=== PATIENT | female | born 1985 | race Caucasian/White ===

== ENCOUNTER → 2019-08-08 16:19 | Outpatient (CLI) | payer OTHER, MEDICAID, SELFPAY | PROVIDERS: Referring Provider Family Medicine; Visit Provider Family Medicine | DX: Z34.91 Encounter for supervision of normal pregnancy, unspecified, first trimester (principal); Z53.9 Procedure and treatment not carried out, unspecified reason ==

== ENCOUNTER → 2019-08-22 10:39 | Outpatient (CLI) | payer OTHER, MEDICAID, SELFPAY ==
--- NOTE | 2019-08-22 | DI.US.S_ITS ---
PROCEDURE: US OB <= 14 WEEKS FETUS INDICATIONS: SIZE AND DATES OUTSIDE/PRIOR DATING DATA: Last menstrual period (LMP): 07/07/2019. LMP-based estimated date of delivery (JUAREZ): . First dating scan (date and location): 08/22/2019. Estimated date of delivery (JUAREZ) from first dating scan: 04/11/2020. TECHNIQUE: Real-time scanning was performed of the fetus and maternal pelvic organs, with image documentation. Endovaginal scanning was also performed to better visualize the fetus and maternal ovaries. COMPARISON: None. FINDINGS: Embryo: There is a single living intrauterine gestation. heart tone is present with heart rate 123 BPM. The estimated gestation age is 6 weeks 5 days. Measurement variability in dating: +/- 4 weeks by LMP, +/- 7 days by mean sac diameter (use before 6 weeks gestation if crown-rump length not able to be measured), +/- 5 days by crown-rump length (up to 8 weeks 6 days gestation), +/- 7 days by crown-rump length (up to 13 weeks 6 days gestation). Maternal organs: Ovaries are normal. There is a corpus luteal cyst in right ovary. Limited images through the kidneys demonstrate no hydronephrosis. IMPRESSION: 1. A single living intrauterine gestation with an estimated gestational age of 6 weeks 5 days corresponding to ultrasound JUAREZ 04/11/2020. Dictated by: Tree Schofield M.D. on 08/22/2019 at 15:39 Approved by: Tree Schofield M.D. on 08/22/2019 at 15:42
== END ==
PROVIDERS: Referring Provider Family Medicine; Visit Provider Family Medicine
DX: Z36.87 Encounter for antenatal screening for uncertain dates (principal); Z3A.01 Less than 8 weeks gestation of pregnancy
CPT/HCPCS: 76801; 76817

== ENCOUNTER → 2020-03-19 15:53 | Outpatient (ROUT) | payer OTHER, MEDICAID, SELFPAY | PROVIDERS: Visit Provider Family Medicine | DX: Z33.1 Pregnant state, incidental (principal) | CPT/HCPCS: 87081 ==

== ENCOUNTER → 2020-04-02 09:12 | Outpatient (CLI) | payer OTHER, MEDICAID, SELFPAY ==
--- NOTE | 2020-04-02 | DI.US.S_ITS ---
PROCEDURE: US OB LIMITED INDICATIONS: SIZE SMALLER THAN DATES OUTSIDE/PRIOR DATING DATA: Last menstrual period (LMP): 07/07/2019. LMP-based estimated date of delivery (JUAREZ): 04/12/2020 . First dating scan (date and location): 08/22/2019 . Estimated date of delivery (JUAREZ) from first dating scan: 04/11/2020 . TECHNIQUE: Real-time scanning was performed of the fetus, with image documentation and biometric measurements. Endovaginal scanning: No COMPARISON: [facility], OB <= 14 WEEKS FETUS, 08/22/2019, 11:07. FINDINGS: General: A single living intrauterine gestation is present. Presentation: Vertex Placenta: Placental position is posterior fundal , without previa. Amniotic fluid index: 8.9 cm, normal range is 5-24 cm. heart rate: 130 beats per minute. Maternal cervical canal: Not well seen. biometrics: Biparietal diameter: 34 weeks 1 day Head circumference: 35 weeks 2 days Abdominal circumference: 37 weeks 4 days Femur length: 37 weeks 3 days Estimated gestational age from initial scan: 38 weeks 5 days Composite gestational age from present scan: 36 weeks 1 day Estimated weight and percentile: 304 g, 22 percentile Measurement variability for biometric dating: +/- 7 days from 14 weeks to 15 weeks 6 days gestation, +/- 10 days from 16 weeks to 21 weeks 6 days gestation, +/- 2 weeks from 22 weeks to 27 weeks 6 days gestation, +/- 3 weeks for 28 weeks gestation or later. weight reference: 4500 g or EFW >90/95% is considered macrosomia or large for gestational age. EFW <10% is small for gestational age. EFW 5% or less is considered intra-uterine growth restriction. Other: Not applicable. IMPRESSION: Single living IUP redemonstrated and interval growth is within normal limits. Dictated by: Ben [facility] Interpreted: Anna Montanez MD on 04/02/2020 at 12:43 Approved by: Anna Montanez M.D. on 04/02/2020 at 14:59
== END ==
PROVIDERS: PCP Family Medicine; Referring Provider Family Medicine; Visit Provider Family Medicine
DX: Z36.4 Encounter for antenatal screening for fetal growth retardation (principal); Z3A.36 36 weeks gestation of pregnancy
CPT/HCPCS: 76815

== ENCOUNTER → 2020-04-04 09:38 | Outpatient (CLI) | payer OTHER, MEDICAID, SELFPAY ==
[2020-04-04 12:06] LABS: COVID19 -Nasal RAPID Negative (Negative)
== END ==
PROVIDERS: PCP Family Medicine; Visit Provider Physician Assistant
DX: Z20.828 Contact with and (suspected) exposure to other viral communicable diseases (principal)
CPT/HCPCS: 87635

== ENCOUNTER 2020-04-10 08:26 | Inpatient (IN) | payer OTHER, MEDICAID, SELFPAY ==
[2020-04-10 09:04] LABS: COVID19 -Nasal RAPID Negative (Negative)
[2020-04-10] MEDS: OXYTOCIN PREMIX 30 UNIT/500 ML PLAST..BAG IV (09:49)
[2020-04-10] MEDS: LACTATED RINGERS 1,000 ML 100 ML IV ×2 (09:49→12:38)
--- NOTE | 2020-04-10 09:49 | PM.OBHP.1 ---
OB HPI Date/Time Date of admission: 04/10/20 Date Patient Seen: 04/10/20 Time Patient Seen: 09:49 History of Present Condition Chief complaint: induction Para: 1 Estimated Date of Delivery: 04/12/20 Estimated Gestational Age (weeks): 39 5/7 Narrative: Lois Roach is a 34 year old female Comments: Patient is a EDC 1224 with good dates early ultrasound who presents for induction by request. Cervix is considered ripe and by patient's request she was brought in for induction Indications Indication for induction OB: maternal discomfort History of Present care: good care Dating criteria: LMP confirmed by 1st trimester US Ultrasounds: normal mid trimester US Obstetrical complications: none Narrative: Patient transferred care to 36 weeks. No major issues. She had transferred originally early in the and then returned. Had been followed but had been followed by [facility] [place] no complications during that time. Ultrasound was normal Preadmission Labs Blood type: A (+) positive -: Antibody screen: negative, Cystic fibrosis screen: unknown, GBS status: negative, HBsAG: negative, HIV: negative, HSV 1: negative, HSV 2: negative and RPR/VDLR: negative -: Chlamydia screen: not detected and Gonorrhea screen: not detected -: Rubella: equivocal and Varicella: immune HCAB: negative PAP: Normal Prior (ies) History: Forty week intrauterine no complications Evaluation Evaluation Laboratory results: Laboratory Tests 04/10/20 08:45 COVID-19 PCR Negative Exam Vital Signs (past 8 hours): Alert smiling gravid female in no acute distress. Lungs are clear. Heart regular rate and rhythm. Evidence gravid. Estimated weight 7 lb. Sterile vaginal exam 3 cm is 60% -1 vertex AROM with clear fluid. Code without sinus clubbing edema. Neurologic exam is normal. Objective Labs Labs: Laboratory Results - last 24 hr 04/10/20 08:45 COVID-19 PCR Negative Assessment and Plan Assessment and Plan Assessment and Plan narrative: Thirty-nine and 5 7th week intrauterine here for induction. AROM now Pitocin started prepare for vaginal delivery heart monitors category 1
[2020-04-10 09:51] LABS: Add Manual Diff / Slide Review NO; Basophils Absolute Auto 0 /uL (0-100); Basophils Percent Auto 0.4 % (0-2); Eosinophils Absolute Auto 200 /uL (0-450); Hematocrit 35.8 % (36-46); Hemoglobin 12.1 g/dL (12.0-16.0); Lymphocytes Absolute Auto 1700 /uL (1100-4500); Lymphocytes Percent Auto 16.9 % (25-40); Mean Corpuscular HGB Conc 33.7 % (30-36); Mean Corpuscular Hemoglobin 28.6 PG (26-34); Mean Corpuscular Volume 84.8 fL (80-100); Monocytes Absolute Auto 600 /uL (0-900); Neutrophils Absolute Auto 7700 /uL (1500-7000); Neutrophils Percent Auto 74.7 % (50-75); Platelet Count 217 X10^3/uL (150-400); Red Blood Cell Count 4.22 X10^6/uL (4.0-5.2); Red Cell Distribution Width 14.3 % (11.6-14.8); White Blood Cell Count 10.3 X10^3/uL (4.5-11.0)
[2020-04-10 11:12] VITALS: BP 118/70
[2020-04-10] MEDS: FENT 2MCG/ML BUPIV 0.125% EPI 200 MCG/100 ML PLAST..BAG 10 MCG EPIDURAL (12:15)
--- NOTE | 2020-04-10 13:17 | PM.OBPNLAB ---
Date/Time Date Patient Seen: 04/10/20 Time Patient Seen: 13:17 Pain Control Pain control: epidural Pelvic Exam Dilation (cm): 4 Effacement (%): 70 station: -1 Amniotic membrane status: Ruptured Contractions Contractions on admission: irregular Monitor mode: None Pitocin rate (mU/min): 6 Contraction intensity: Moderate Status status: Category l Assessment and Plan Assessment: induction ongoing Comments: Discussed with patient. Overall doing well. More comfortable. Has a window which though be dealing with. Otherwise no major issues. heart monitor was reactive. Having difficulty picking contractions so IUPC was placed without complications. Seems to be working well. Will prepare for .
[2020-04-10 16:44] VITALS: BP 126/87; PULSE 84; RESP 16; TEMP 36.4
--- NOTE | 2020-04-10 17:59 | PM.OBPRVD ---
Labor & Delivery Delivery date: 04/10/20 Intrapartal events: None Cervical ripening method: none Induction method: AROM Delivery augmentation: pitocin Delivery monitor: external uterine and internal uterine Route of delivery: Episiotomy description: None L&D Laceration Description: None Estimated blood loss (mL): 200 Anesthesia Type: Epidural Narrative: Patient was brought in for induction this morning for request 39 and 5 7th week. She had no other significant complaint or problem. She had transfer to mt at 36 weeks after starting care early she had had no other significant new changes or complaints. Did not have genetic screening or 1 hour glucose test but otherwise was up-to-date on screening. was otherwise unremarkable. Recent ultrasound showed 7-1/2 lb with no complications or problems. Dating was with good dates with early ultrasound. She was brought in with and after assessing GBS status ruptured with clear fluid. Pitocin was begun. Shortly after Pitocin was begun and cervix at changed to about 4 cm she began having increasing pain and epidural was placed. heart monitor was category 1 throughout for stage. She continued to make slow progress without any complications over the course of the afternoon. Pain control was excellent. There was difficulty in monitoring contractions and IUP was placed without complications and worked well through the course of the is 1st and 2nd stage. She was checked and found to be almost complete and had no knowledge. Second-stage was 1 push and child was delivered OA over intact perineum. She was placed up onto the abdomen and Apgars were 9 and 9. No resuscitation required. Cord was clamped and cut by dad. Placenta delivered spontaneous intact 3 vessels. Evaluation of the vagina showed no tears no cervical tears. EBL 200 cc. Mother and infant stable condition.
[2020-04-10] MEDS: IBUPROFEN 600 MG TABLET PO (20:52)
[2020-04-10] MEDS: ACETAMINOPHEN 325 MG TABLET 650 MG PO (22:27)
[2020-04-11] MEDS: IBUPROFEN 600 MG TABLET PO ×2 (03:49→11:57)
[2020-04-11] MEDS: PRENATAL VIT,CALC/IRON/FOLIC 1 TABLET 1 TAB PO (08:09)
[2020-04-11] MEDS: ACETAMINOPHEN 325 MG TABLET 650 MG PO (08:37)
--- NOTE | 2020-04-11 10:00 | P.DS_ITS ---
History of Present Illness History of Present Illness Date Patient Seen: 04/11/20 Time Patient Seen: 10:00 Date of Onset of Symptoms: 04/11/20 Chief complaint: induction Narrative: Please see history and physical. 395 7th week intrauterine brought in for induction Discharge Providers Provider Date of admission: 04/10/20 08:26 Discharge Date: 04/11/20 Primary care physician: Bc Mcclain MD Consults: 04/11/20 17:56 Consult to [employer]per Routine Comment: Discharge provider: Bc Mcclain MD Summary Hospital Course Discharge Diagnosis: Term intrauterine . Hospital Course: Patient was brought in for induction please see delivery summary. She had a uncomplicated after induction with rupture of membranes and Pitocin. She was transferred to recovery without complications. She had no other significant new change. She had minimal lochia. On day 1. Breast- feeding was going well. Pain was well controlled with Tylenol and ibuprofen. She had no concerns or question was requesting to go home. She was discharged home in stable position Status at Discharge Cognitive/behavioral status at discharge: oriented Functional status at discharge: independent ambulation Overall status at discharge: patient is progressing back to baseline Exam Vital Signs (past 8 hours): Alert smiling female in no acute distress. HEENT exam is unremarkable mucous membranes moist. Neck supple without adenopathy. Lungs are clear. Heart regular rate and rhythm. Abdomen is soft positive bowel sounds uterus is at the umbilicus and minimally tender. Extremities without edema or calf tenderness Objective Labs Result Diagrams: 04/10/20 09:15 Labs: Laboratory Results - last 24 hr 04/10/20 09:15 Blood Type A Positive Antibody Screen Negative [facility] Social History Smoking Status: Never smoker Discharge Assessment & Plan Assessment and Plan Assessment: Discharge to home. She will be followed up with me in 6 weeks. Routine post de livery instructions discussed and concerning signs and symptoms. She understands. Questions answered comfortable with decision to go home Discharge Plan Discharge Plan Patient Disposition: Home Discharge orders & Medications Prescriptions: New ibuprofen 600 mg Tablet 600 mg PO Q6HR PRN (Reason: Pain, Mild (1-3)) Qty: 90 RF: 0 Continued prenat.vits,bradley,[id number]-[id number] Tablet 1 tab PO DAILY RF: 0 omeprazole magnesium [Prilosec OTC] 20 mg Tablet,Delayed Release (Dr/Ec) 20 mg PO DAILY RF: 0 Follow up/Referrals: Bc Mcclain MD [Primary Care Provider] - 6 Weeks Diet/Activity/Treatments Diet: Diet as Tolerated Activity: as tolerated Skin/Wound/Dressing Care Report to your healthcare provider any signs of infection, such as:: chills, fever, increased pain, unusual drainage and unusual redness Discharge Data Primary Care Provider: Bc Mcclain
== END 2020-04-11 15:17 | disposition home or self-care (01) | DRG 560 ==
PROVIDERS: Admitting Provider Family Medicine; PCP Family Medicine; Referring Provider Family Medicine; Visit Provider Family Medicine
DX: O80 Encounter for full-term uncomplicated delivery (principal); Z3A.39 39 weeks gestation of pregnancy; Z37.0 Single live birth; Z01.812 Encounter for preprocedural laboratory examination; Z20.828 Contact with and (suspected) exposure to other viral communicable diseases
CPT/HCPCS: 01967; 36415; 59050; 85025; 86850; 86900; 86901; 87635; G0379; J2590

== ENCOUNTER → 2021-05-15 16:30 | Outpatient (CLI) | payer OTHER, MEDICAID, SELFPAY | PROVIDERS: PCP Family Medicine; Visit Provider Physician Assistant | DX: R30.0 Dysuria (principal) | CPT/HCPCS: 81002; 87086 ==

== ENCOUNTER → 2021-05-16 11:08 | Outpatient (CLI) | payer OTHER, MEDICAID, SELFPAY ==
--- NOTE | 2021-05-16 11:12 | DI.US.S_ITS ---
PROCEDURE: US OB <= 14 WEEKS FETUS INDICATIONS: SPOTTING X 2 DAYS. INITIAL DATING. OUTSIDE/PRIOR DATING DATA: Last menstrual period (LMP): Uncertain. LMP-based estimated date of delivery (JUAREZ): Not applicable. First dating scan (date and location): Not applicable. Estimated date of delivery (JUAREZ) from first dating scan: Not applicable. TECHNIQUE: Real-time scanning was performed of the fetus and maternal pelvic organs, with image documentation. Endovaginal scanning was also performed to better visualize the fetus and maternal ovaries. COMPARISON: [facility], OB <= 14 WEEKS FETUS, 08/22/2019, 11:07. FINDINGS: Embryo: There is an intrauterine gestational sac seen, with a mean gestational sac diameter of 1.5 cm, which corresponds to an estimated gestational age of 6 weeks 2 days. On these images, there is a yolk sac seen. No pole can be seen. On the right, there is an apparent subchorionic hemorrhage that measures 3 x 3 x 5 mm. Maternal organs: Ovaries are within normal limits, with a likely corpus luteum seen on the left. IMPRESSION: An intrauterine gestational sac is seen, which contains a yolk sac, yet without a pole at this time. There is a likely small subchronic hemorrhage. Close clinical followup, with serial beta-hCG and serial ultrasound are recommended, if clinically appropriate. Likely left ovarian corpus luteum. We strive to produce accurate, complete, and clear reports of imaging services. To assist us in improving patient care, this report was composed using standard report templates and voice recognition software. Therefore, it may contain abnormal punctuation, insertions and/or omissions. Occasional wrong-word or sound-alike substitutions may occur. Though we review the report and make efforts to correct it, we do recommend that the report be read carefully in proper context to recognize any text inaccuracies. Dictated by: Yann Brennan M.D. on 05/16/2021 at 11:36 Approved by: Yann Brennan M.D. on 05/16/2021 at 11:38
== END ==
PROVIDERS: PCP Family Medicine; Referring Provider Family Medicine; Visit Provider Family Medicine
DX: O20.9 Hemorrhage in early pregnancy, unspecified (principal)
CPT/HCPCS: 76801; 76817

== ENCOUNTER 2021-05-17 17:49 | Emergency (ER) | payer OTHER, MEDICAID, SELFPAY ==
[2021-05-17] VITALS (18 sets, daily range): BP systolic 112–159; BP diastolic 67–92; PULSE 67–91; RESP 16; TEMP 36.7; O2SAT 96–99; BMI 28.0
--- NOTE | 2021-05-17 18:30 | DI.US.S_ITS ---
PROCEDURE: US OB <= 14 WEEKS FETUS INDICATIONS: HEAVY BLEEDING OUTSIDE/PRIOR DATING DATA: Last menstrual period (LMP): Not available. LMP-based estimated date of delivery (JUAREZ): Not available. First dating scan (date and location): 05/16/2021 at [facility]. Estimated date of delivery (JUAREZ) from first dating scan: 01/07/2022. The calculations are made using the ultrasound JUAREZ of 01/07/2022. TECHNIQUE: Real-time scanning was performed of the fetuses and maternal pelvic organs, with image documentation. Endovaginal scanning: Performed for better visualization of the fetuses and maternal adnexal structures. COMPARISON: [facility], US, US OB <= 14 WEEKS FETUS, 08/22/2019, 11:07. FINDINGS: There is irregular complex fluid within the endometrial cavity. No gestational sac is visible. Ovaries were not imaged. IMPRESSION: 1 No intrauterine gestational sac is identified. Irregular complex fluid within the endometrial cavity. The finding in this woman with heavy bleeding is most compatible with spontaneous . Recommend clinical correlation and follow-up imaging if clinically indicated. We strive to produce accurate, complete, and clear reports of imaging services. To assist us in improving patient care, this report was composed using standard report templates and voice recognition software. Therefore, it may contain abnormal punctuation, insertions and/or omissions. Occasional wrong-word or sound-alike substitutions may occur. Though we review the report and make efforts to correct it, we do recommend that the report be read carefully in proper context to recognize any text inaccuracies. Dictated by: Tree Schofield M.D. on 05/17/2021 at 19:49 Approved by: Tree Schofield M.D. on 05/17/2021 at 19:53
[2021-05-17 19:02] LABS: Add Manual Diff / Slide Review NO; Basophils Absolute Auto 200 /uL (0-100); Basophils Percent Auto 1.4 % (0-2); Eosinophils Absolute Auto 100 /uL (0-450); Eosinophils Percent Auto 0.7 % (2-4); Hematocrit 38.1 % (36-46); Hemoglobin 12.7 g/dL (12.0-16.0); Lymphocytes Absolute Auto 1200 /uL (1100-4500); Lymphocytes Percent Auto 9.3 % (25-40); Mean Corpuscular HGB Conc 33.4 % (30-36); Mean Corpuscular Hemoglobin 29.3 PG (26-34); Monocytes Absolute Auto 400 /uL (0-900); Monocytes Percent Auto 3.4 % (3-14); Neutrophils Absolute Auto 11300 /uL (1500-7000); Neutrophils Percent Auto 85.2 % (50-75); Platelet Count 230 X10^3/uL (150-400); Red Blood Cell Count 4.33 X10^6/uL (4.0-5.2); Red Cell Distribution Width 12.7 % (11.6-14.8); White Blood Cell Count 13.2 X10^3/uL (4.5-11.0)
[2021-05-17 19:17] LABS: Alanine Aminotransferase 36 IU/L (<35); Albumin 4.9 g/dL (3.5-5.0); Albumin Globulin Ratio 1.4 (1.0-2.8); Alkaline Phosphatase 53 U/L (38-126); Aspartate Aminotransferase 30 IU/L (14-36); BUN Creatinine Ratio 14.3 (6-22); Bilirubin Total 1.5 mg/dL (0.2-1.3); Blood Urea Nitrogen 8 mg/dL (7-17); Calcium 9.8 mg/dL (8.4-10.2); Carbon Dioxide 28 mmol/L (22-32); Chloride 102 mmol/L (98-107); Estimated Glomerular Filt Rate > 60.0 mL/min (>60); Globulin 3.6 g/dL (1.7-4.1); Glucose 109 mg/dL (70-100); HEMOLYSIS < 15 (0-50); Sodium 140 mmol/L (137-145); Total Protein 8.5 g/dL (6.3-8.2)
--- NOTE | 2021-05-17 19:33 | ED.PREGNANCY ---
HPI - General Chief complaint: Vaginal Bleeding Stated complaint: POSS. MISCARRIAGE Time Seen by Provider: 05/17/21 18:47 Source: patient Mode of arrival: Ambulatory Limitations: no limitations History of Present Illness HPI Narrative: Patient is a 35-year-old female G4 P to 1 prior presenting today with increased vaginal bleeding. She was seen evaluated by her primary care provider yesterday she had an ultrasound in the office there was concern for possible miscarriage at that time there was no heart rate detected. She went home today and started having increased bleeding in fact in the ED she had a lot of bleeding in the bathroom. She denies any dizziness or lightheadedness. She says that she has gone through 1 pad in 2 hours no large blood clots. She was having intense painful cramps. She actually has appointment with an OBGYN in 3 days Related Data Home Medications Medication Instructions Recorded Confirmed omeprazole magnesium 20 mg 20 mg PO DAILY 04/10/20 05/15/21 tablet,delayed release (Prilosec OTC) prenat.vits,bradley,jor-sixf-rqrif 1 tab PO DAILY 04/10/20 05/15/21 Previous Rx's Medication Instructions Recorded ibuprofen 600 mg tablet 600 mg PO Q6HR PRN #90 tab 04/11/20 cephalexin 500 mg capsule 1,000 mg PO BID 7 Days #28 cap 05/15/21 Allergies Allergy/AdvReac Type Severity Reaction Status Date / Time No Known Drug Allergies Allergy Verified 05/15/21 16:02 Review of Systems Review of Systems Narrative: GENERAL: Denies chills, fatigue, malaise, fever, sweats, travel HEENT: Denies sinus pain, ear pain, sore throat, difficulty swallowing, neck pain RESPIRATORY: Denies dyspnea, cough, wheezing, hemoptysis, sputum. CARDIOVASCULAR: Denies chest pain, palpitations, orthopnea, edema GASTROINTESTINAL: Denies nausea, vomiting, abdominal pain, diarrhea, constipation, melena. : Denies dysuria, frequency, incontinence, hematuria, urinary retention, flank pain. 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 12 point review of systems is negative except for those stated above and HPI Exam Initial Vital Signs Initial Vital Signs: Vital Signs Temperature 98.1 F 05/17/21 17:52 Pulse Rate 91 H 05/17/21 17:52 Respiratory Rate 16 05/17/21 17:52 Blood Pressure 141/90 H 05/17/21 17:52 Pulse Oximetry 99 05/17/21 17:52 GENERAL: Alert 35-year-old female and in no acute distress. HEENT: Head atraumatic,EOMI, pupils reactive, face symmetric, moist mucous membranes CARDIOVASCULAR: Regular rate and rhythm without murmurs, rubs or gallops. RESPIRATORY: Breath sounds equal bilaterally, no wheezes rales or rhonchi. ABDOMEN: Soft, nontender. Normoactive bowel sounds all 4 quadrants. No guarding or rebound. PELVIC: Large blood in vagina feels speculum quickly. EXTREMITIES: Normal range of motion, no clubbing or edema. Neurovascularly intact NEUROLOGICAL: Alert and oriented x4.Normal gait and speech. SKIN: Warm, dry, no laceration, no petechiae, no rashes or lesions. Course Orders Ordered: ED Orders 05/17/21 18:30 US OB <= 14 weeks fetus Stat ABO RH Type Stat Complete Blood Count AUTO DIFF Stat Comprehensive Metabolic Panel Stat HCG Quantitative /Beta subunit Stat 05/17/21 21:09 COVID19 -Nasal swab/Pre-Proc Stat 05/17/21 21:51 Consult to Physician Stat US transvaginal Stat Discontinued Medications Methylergonovine Maleate (Methylergonovine 0.2 Mg/Ml Vial) 0.2 mg IM NOW ONE Stop: 05/17/21 21:52 Last Admin: 05/17/21 22:06 Dose: 0.2 mg Documented by: ASHLEY Vital Signs Vital signs: Vital Signs - 8 hr 05/17/21 17:52 05/17/21 20:52 05/17/21 20:53 Temperature 98.1 F Pulse Rate 91 H 86 Respiratory Rate 16 Blood Pressure 141/90 H 159/69 H Pulse Oximetry 99 99 98 05/17/21 21:00 05/17/21 21:10 05/17/21 21:21 Temperature Pulse Rate 80 81 78 Respiratory Rate Blood Pressure 133/67 136/75 140/69 Pulse Oximetry 99 98 99 05/17/21 21:30 05/17/21 21:40 05/17/21 21:50 Temperature Pulse Rate 76 81 90 Respiratory Rate Blood Pressure 131/81 137/82 148/87 H Pulse Oximetry 98 97 99 05/17/21 22:00 05/17/21 22:10 05/17/21 22:20 Temperature Pulse Rate 81 84 89 Respiratory Rate Blood Pressure 137/92 H 140/91 H Pulse Oximetry 98 98 99 05/17/21 22:30 05/17/21 22:40 05/17/21 22:50 Temperature Pulse Rate 84 77 71 Respiratory Rate Blood Pressure 121/82 121/69 120/75 Pulse Oximetry 98 97 98 05/17/21 23:00 05/17/21 23:10 05/17/21 23:20 Temperature Pulse Rate 67 69 67 Respiratory Rate Blood Pressure 120/80 112/68 113/75 Pulse Oximetry 97 96 98 MDM - OB/Uterine Contractions Lab Data Result diagrams: 05/17/21 18:30 05/17/21 18:30 Labs: Lab Results 05/17/21 05/17/21 05/17/21 Range/Units 14:52 18:30 18:30 WBC 13.2 H (4.5-11.0) X10^3/uL RBC 4.33 (4.0-5.2) X10^6/uL Hgb 12.7 (12.0-16.0) g/dL Hct 38.1 (36-46) % MCV 88.0 (80-100) fL MCH 29.3 (26-34) PG MCHC 33.4 (30-36) % RDW 12.7 (11.6-14.8) % Plt Count 230 (150-400) X10^3/uL Neut % (Auto) 85.2 H (50-75) % Lymph % (Auto) 9.3 L (25-40) % [place] % (Auto) 3.4 (3-14) % Eos % (Auto) 0.7 L (2-4) % Baso % (Auto) 1.4 (0-2) % Neut # (Auto) 58433 H (5766-9562) /uL Lymph # (Auto) 1200 (7010-7021) /uL [place] # (Auto) 400 (0-900) /uL Eos # (Auto) 100 (0-450) /uL Baso # (Auto) 200 H (0-100) /uL Sodium 140 (137-145) mmol/L Potassium 4.0 (3.4-5.1) mmol/L Chloride 102 (98-107) mmol/L Carbon Dioxide 28 (22-32) mmol/L BUN 8 (7-17) mg/dL Creatinine 0.56 (0.52-1.04) mg/dL Estimated GFR > 60.0 (>60) mL/min BUN/Creatinine Ratio 14.3 (6-22) Glucose 109 H (70-100) mg/dL Calcium 9.8 (8.4-10.2) mg/dL Total Bilirubin 1.5 H (0.2-1.3) mg/dL AST 30 (14-36) IU/L ALT 36 H (<35) IU/L Alkaline Phosphatase 53 (38-126) U/L Total Protein 8.5 H (6.3-8.2) g/dL Albumin 4.9 (3.5-5.0) g/dL Globulin 3.6 (1.7-4.1) g/dL Albumin/Globulin Ratio 1.4 (1.0-2.8) HCG, Quant 2401.6 mIU/mL Urine RBC >100/hpf H (0-5/HPF) Urine WBC 5-10/hpf H (0-5/HPF) Ur Squamous Epith Cells 0-1 /hpf (0-5/HPF) Urine Bacteria None seen (None) Ur Culture Indicated? Specimen cultured SARS-CoV-2 (PCR) (Negative) Blood Type 05/17/21 05/17/21 Range/Units 18:30 21:09 WBC (4.5-11.0) X10^3/uL RBC (4.0-5.2) X10^6/uL Hgb (12.0-16.0) g/dL Hct (36-46) % MCV (80-100) fL MCH (26-34) PG MCHC (30-36) % RDW (11.6-14.8) % Plt Count (150-400) X10^3/uL Neut % (Auto) (50-75) % Lymph % (Auto) (25-40) % [place] % (Auto) (3-14) % Eos % (Auto) (2-4) % Baso % (Auto) (0-2) % Neut # (Auto) (5978-8806) /uL Lymph # (Auto) (6184-4698) /uL [place] # (Auto) (0-900) /uL Eos # (Auto) (0-450) /uL Baso # (Auto) (0-100) /uL Sodium (137-145) mmol/L Potassium (3.4-5.1) mmol/L Chloride (98-107) mmol/L Carbon Dioxide (22-32) mmol/L BUN (7-17) mg/dL Creatinine (0.52-1.04) mg/dL Estimated GFR (>60) mL/min BUN/Creatinine Ratio (6-22) Glucose (70-100) mg/dL Calcium (8.4-10.2) mg/dL Total Bilirubin (0.2-1.3) mg/dL AST (14-36) IU/L ALT (<35) IU/L Alkaline Phosphatase (38-126) U/L Total Protein (6.3-8.2) g/dL Albumin (3.5-5.0) g/dL Globulin (1.7-4.1) g/dL Albumin/Globulin Ratio (1.0-2.8) HCG, Quant mIU/mL Urine RBC (0-5/HPF) Urine WBC (0-5/HPF) Ur Squamous Epith Cells (0-5/HPF) Urine Bacteria (None) Ur Culture Indicated? SARS-CoV-2 (PCR) Negative (Negative) Blood Type A Positive Urine Dip Bedside Urine Glucose Negative Bedside Urine Bilirubin - Negative Bedside Urine Ketone +/- 5 Urine Specific [place] 1.03 Bedside Urine Occult Blood +++ Bedside Urine pH 5 Bedside Urine Protein ++ 100 Bedside Urine Urobilinogen - Negative Bedside Urine Nitrite - Negative Bedside Urine Leukocytes + 70 Esterase Imaging Data US - OB: Radiologist's Impression: PROCEDURE:? US OB <= 14 WEEKS FETUS ? INDICATIONS:? HEAVY BLEEDING ? OUTSIDE/PRIOR DATING DATA:? Last menstrual period (LMP):? Not available. LMP-based estimated date of delivery (JUAREZ):? Not available.? First dating scan (date and location):? 05/16/2021 at [facility].? Estimated date of delivery (JUAREZ) from first dating scan:? 01/07/2022. The calculations are made using the ultrasound JUAREZ of 01/07/2022.? ? TECHNIQUE:? Real-time scanning was performed of the fetuses and maternal pelvic organs, with image documentation.? Endovaginal scanning:? Performed for better visualization of the fetuses and maternal adnexal structures.? ? COMPARISON:? [facility], OB <= 14 WEEKS FETUS, 08/22/2019, 11:07. ? FINDINGS:? There is irregular complex fluid within the endometrial cavity.? No gestational sac is visible. ? Ovaries were not imaged. ? IMPRESSION:? ? 1 No intrauterine gestational sac is identified.? Irregular complex fluid within the endometrial cavity.? The finding in this woman with heavy bleeding is most compatible with spontaneous .? Recommend clinical correlation and follow-up imaging if clinically indicated. ? We strive to produce accurate, complete, and clear reports of imaging services. To assist us in improving patient care, this report was composed using standard report templates and voice recognition software. Therefore, it may contain abnormal punctuation, insertions and/or omissions. Occasional wrong-word or sound-alike substitutions may occur. Though we review the report and make efforts to correct it, we do recommend that the report be read carefully in proper context to recognize any text inaccuracies. ? ? ? Dictated by: Tree Schofield M.D. on 05/17/2021 at 19:49 ? ? Approved by: Tree Schofield M.D. on 05/17/2021 at 19:53 ? US - SENIOR CORE JAVA DEVELOPER: Radiologist's Impression: PROCEDURE: US TRANSVAGINAL ? COMPARISON: [facility], OB <= 14 WEEKS FETUS, 05/17/2021, 19:19. ? INDICATIONS: POST SAB; OB INTERVENTION ? FINDINGS: The endometrial stripe is thickened, measuring 18.4 cm.? No abnormal vascularity can be seen along the endometrial stripe uterus is anteverted and measures 8.4 x 3.8 x 4.8 cm. ? The ovaries are not evaluated.? IMPRESSION: The previously seen cystic irregular contents of the endometrial fundus have been removed. ? The endometrial stripe is thickened and heterogeneous, yet it demonstrates no significant abnormal vascularity.? This most likely represents blood products, yet without stephy retained products of conception. ? If clinically appropriate, please consider short-term follow-up. ? ? ? Dictated by: Yann Brennan M.D. on 05/17/2021 at 22:14 ?? MDM Narrative Medical decision making narrative: Patient actually had quite a bit of bleeding while in the emergency department. She said it did not start out like this but has progressively gotten worsen during her stay. Every time she used the restroom there was quite a bit of blood. Pelvic exam confirms that there is significant bleeding. Ob on-call Dr. Helm has been notified who request backup Dr. Rodríguez. Dr. Rodríguez in the ED to seen evaluated patient. He was able to suction out and remove tissue. Her repeat ultrasound confirms no retained products and likely some blood clots. He has reviewed the ultrasound report and the post ultrasound himself. Agrees that at this time patient can be discharged safely home. Discharge Plan Departure Patient Disposition: Home Clinical Impression: Miscarriage Instructions: DI for Miscarriage Activity Restrictions/Additional Instructions: HC.6 *You have been diagnosed with miscarriage *What to do: At this time expect to have bleeding and cramping. Bleeding should start to slow down. *Continue to take medications as directed Tylenol 1000 mg every 6 hours Motrin 800 mg every 8 hours *Follow up with your OBGYN on Thursday as scheduled or call [phone] *Return to ER if you should have increased heavy bleeding (more than 2 super pads an hour), large of blood clots, dizziness, lightheadedness, any new, worsening or concerning symptoms Prescriptions: No Action cephalexin 500 mg capsule 1,000 mg PO BID 7 Days Qty: 28 0RF prenat.vits,bradley,yvx-leyc-ibgnl Tablet 1 tab PO DAILY 0RF omeprazole magnesium [Prilosec OTC] 20 mg Tablet,Delayed Release (Dr/Ec) 20 mg PO DAILY 0RF ibuprofen 600 mg Tablet 600 mg PO Q6HR PRN (Reason: Pain, Mild (1-3)) Qty: 90 0RF Referrals: Vannesa Helm MD [Physician] - Bc Mcclain MD [Primary Care Provider] -
[2021-05-17 19:34] LABS: HCG Quantitative /Beta subunit 2401.6 mIU/mL
[2021-05-17 20:15] LABS: Bacteria Urine None Seen; Culture Indicated Urine Specimen Cultured; RBC Urine >100/HPF (0-5/HPF); Squamous Epithelial Cell Urine 0-1 /HPF (0-5/HPF); WBC Urine 5-10/HPF (0-5/HPF)
[2021-05-17 21:47] LABS: COVID19 -Nasal RAPID Negative (Negative)
--- NOTE | 2021-05-17 21:51 | DI.US.S_ITS ---
PROCEDURE: US TRANSVAGINAL COMPARISON: [facility], , US OB <= 14 WEEKS FETUS, 05/17/2021, 19:19. INDICATIONS: POST SAB; OB INTERVENTION FINDINGS: The endometrial stripe is thickened, measuring 18.4 cm. No abnormal vascularity can be seen along the endometrial stripe uterus is anteverted and measures 8.4 x 3.8 x 4.8 cm. The ovaries are not evaluated. IMPRESSION: The previously seen cystic irregular contents of the endometrial fundus have been removed. The endometrial stripe is thickened and heterogeneous, yet it demonstrates no significant abnormal vascularity. This most likely represents blood products, yet without stephy retained products of conception. If clinically appropriate, please consider short-term follow-up. Dictated by: Yann Brennan M.D. on 05/17/2021 at 22:14 Approved by: Yann Brennan M.D. on 05/17/2021 at 22:16
--- NOTE | 2021-05-17 22:04 | PATH_ITS ---
[facility] Accession Number: [id number] No. of containers..01 Tissue . 01 Material submitted: . product of conception - POC . 01 Clinical history: . TISSUE FROM HENRY . 02 Diagnosis: A. Products of Conception, Removal: Immature chorionic villi with hydropic change and implantation site, consistent with intrauterine . Negative for significant atypia and proliferation. Background decidua and gestational endometrium with extensive necrosis, fibrin, and necroinflammatory debris. MRV 05/26/2021 1321 Local . 02 Electronically signed: . Ashly Curtis MD, Pathologist NPI- [id number] . 01 Gross description: . The specimen is fresh, labeled with the patient's name and products of conception, is composed of a dark red portion of soft tissue which measures 8.0 x 2.0 x 0.5 cm. Sectioning reveals a membranous cavity filled with clotted blood with specks of abbott-pink spongy-type tissue present interspersed within the blood clot. Definite chorionic villi or parts are not identified. Records Specialist sections are submitted in cassettes A1-A3. ([id number]) /MRV 05/21/2021 1234 Local . 02 Pathologist provided ICD-10: O03.9 . 02 CPT . 812744 Specimen Comment: A duplicate report has been generated due to demographic updates. Performed at: 01 [facility] [address] [place] [address], [place], [place] [id number] MD Yohan Ledesma MD Phone: [phone] Performed at: [facility] [place] [address] [place], [place] [id number] MD Rosa M De La Garza MD Phone: [phone]
[2021-05-17] MEDS: METHYLERGONOVINE 0.2 MG/ML VIAL IM (22:06)
--- NOTE | 2021-05-17 23:17 | PM.CN ---
History of Present Illness Consult details Date Patient Seen: 05/17/21 Time Patient Seen: 21:30 Chief complaint: POSS. MISCARRIAGE Reason for consult: Threatened miscarriage Requesting provider: Alexandra Cooper Narrative: Elisabeth is a 35 yo A1 LMP mid-March 2021 who presents to [facility] ED with the onset of heavy vaginal bleeding on the afternoon of 05/17/2020. Ultrasound showed abundant complex fluid within the uterus but no gestational sac as had been seen on an ultrasound performed 05/16/2021 when spotting had started. Exam in ED by attending ED Provider showed profuse vaginal bleeding which made visualization of the upper vagina impossible and OBGYN consult requested. Patient is experiencing severe cramping and passage of large clots as well as BRB PV. No tissue passed as yet. BT A+. Meds Home Medications and Allergies Home Medications Medication Instructions Recorded Confirmed Type omeprazole magnesium 20 mg 20 mg PO DAILY 04/10/20 05/15/21 History tablet,delayed release (Prilosec OTC) prenat.vits,bradley,vyf-pged-njwzl 1 tab PO DAILY 04/10/20 05/15/21 History ibuprofen 600 mg tablet 600 mg PO Q6HR PRN #90 tab 04/11/20 05/15/21 Rx cephalexin 500 mg capsule 1,000 mg PO BID 7 Days #28 cap 05/15/21 05/15/21 Rx Allergies Allergy/AdvReac Type Severity Reaction Status Date / Time No Known Drug Allergies Allergy Verified 05/15/21 16:02 Review of Systems Review of Systems Narrative: Problem-specific ROS positives included in HPI Exam Vital Signs (past 8 hours): - 05/17/21 17:52 Temperature 98.1 F Pulse Rate 91 H Respiratory Rate 16 Blood Pressure 141/90 H Pulse Oximetry 99 Oxygen Delivery Method Room Air Const General: cooperative, acute distress (Due to bleeding and pain) and anxious Nutritional Appearance: average body habitus Orientation: alert and oriented x3 HENMT Head: normal to inspection Eyes General: appearance normal, both eyes and all related structures Neck Neck: normal visual inspection Resp Effort & Inspection: normal respiratory effort and able to speak in complete sentences GI Inspection: normal to inspection Palpation: soft, no hepatosplenomegaly and tender (Mild, diffuse lower abdominal discomfort) Other: EXT/BUS: Normal for age and parity but covered in blood VAG: Large amounts of BRB and clot requiring suction to fully evacuate the vaginal canal for evaluation CX: Dilated and large aggregate of POC's at os removed with ring forceps and submitted for surgical path UTX: TNS firm ADN: Negative Objective Labs Result Diagrams: 05/17/21 18:30 05/17/21 18:30 Labs: Laboratory Results - last 24 hr 05/17/21 05/17/21 05/17/21 14:52 18:30 18:30 WBC 13.2 H RBC 4.33 Hgb 12.7 Hct 38.1 MCV 88.0 MCH 29.3 MCHC 33.4 RDW 12.7 Plt Count 230 Neut % (Auto) 85.2 H Lymph % (Auto) 9.3 L [place] % (Auto) 3.4 Eos % (Auto) 0.7 L Baso % (Auto) 1.4 Neut # (Auto) 47381 H Lymph # (Auto) 1200 [place] # (Auto) 400 Eos # (Auto) 100 Baso # (Auto) 200 H Sodium 140 Potassium 4.0 Chloride 102 Carbon Dioxide 28 BUN 8 Creatinine 0.56 Estimated GFR > 60.0 BUN/Creatinine Ratio 14.3 Glucose 109 H Calcium 9.8 Total Bilirubin 1.5 H AST 30 ALT 36 H Alkaline Phosphatase 53 Total Protein 8.5 H Albumin 4.9 Globulin 3.6 Albumin/Globulin Ratio 1.4 HCG, Quant 2401.6 Urine RBC >100/hpf H Urine WBC 5-10/hpf H Ur Squamous Epith Cells 0-1 /hpf Urine Bacteria None seen Ur Culture Indicated? Specimen cultured SARS-CoV-2 (PCR) Blood Type 05/17/21 05/17/21 18:30 21:09 WBC RBC Hgb Hct MCV MCH MCHC RDW Plt Count Neut % (Auto) Lymph % (Auto) [place] % (Auto) Eos % (Auto) Baso % (Auto) Neut # (Auto) Lymph # (Auto) [place] # (Auto) Eos # (Auto) Baso # (Auto) Sodium Potassium Chloride Carbon Dioxide BUN Creatinine Estimated GFR BUN/Creatinine Ratio Glucose Calcium Total Bilirubin AST ALT Alkaline Phosphatase Total Protein Albumin Globulin Albumin/Globulin Ratio HCG, Quant Urine RBC Urine WBC Ur Squamous Epith Cells Urine Bacteria Ur Culture Indicated? SARS-CoV-2 (PCR) Negative Blood Type A Positive [facility] Tobacco & Substance Use Smoking Status: Current every day smoker Assessment & Plan Assessment and plan (1) Miscarriage: Status: Acute Plan Bleeding following removal of POC's from cervical os is markedly less and her cramping has resolved. Methergine .2 mg IM administered to reduce post-SAB bleeding. Repeat pelvic US to R/O retained POC's following removal of POC's from cervical os which shows only some non-vascular debris within the uterine cavity w/o evidence of retained POC's. Will DC home with post-SAB precautions to follow-up with her PCP in the next few days. Pateint provided with my FMA contact information should she develop any issues prior to being seen by her PCP. She will be completing her Cephalexing prescribed for a UTI earlier this week therefore no additional AB prophylaxis prescribed. A copy of this note will be forwarded to her PCP. Time Spent With Patient Critical Care time: I spent a total of [] minutes of critical care time on this patient's care today; this time is exclusive of procedural time.
== END 2021-05-17 23:45 | disposition home or self-care (01) ==
PROVIDERS: Emergency Provider Emergency Medicine; PCP Family Medicine
DX: O03.9 Complete or unspecified spontaneous abortion without complication (principal); Z20.822 Contact with and (suspected) exposure to COVID-19
CPT/HCPCS: 36415; 76801; 76817; 76830; 80053; 81003; 81015; 84702; 85025; 86900; 86901; 87086; 87635; 96372; 99282; 99284; C9803; J2210

== ENCOUNTER → 2021-12-20 14:34 | Outpatient (CLI) | payer OTHER, MEDICAID, SELFPAY ==
--- NOTE | 2021-12-20 14:35 | DI.US.S_ITS ---
PROCEDURE: US OB >= 14 WEEKS FETUS INDICATIONS: ANATOMY OUTSIDE/PRIOR DATING DATA: Last menstrual period (LMP): Unsure. LMP-based estimated date of delivery (JUAREZ): Unknown First dating scan (date and location): None Estimated date of delivery (JUAREZ) from first dating scan: 27 weeks 4 days TECHNIQUE: Real-time scanning was performed of the fetus, with image documentation and biometric measurements. Endovaginal scanning: None COMPARISON: None. FINDINGS: General: A single living intrauterine gestation is present. Presentation: Cephalic Placenta: Placental position is cephalic , without previa. Amniotic fluid index: 15.9 cm, normal range is 5-24 cm. Single deepest vertical pocket is 4.5 cm. heart rate: 143 Maternal cervical canal: 3 cm long. Normal lower limit is 2.5 cm. Trace possible funneling, likely technique related. biometrics: Biparietal diameter: 6.9 consistent with 27 weeks 5 days Head circumference: 25.2 cm consistent with 27 weeks 3 days Abdominal circumference: 22.7 cm consistent with 27 weeks 1 day Femur length: 5.2 cm consistent with 27 weeks 6 days Clinically estimated gestational age: Unknown Composite gestational age from present scan: 27 weeks 4 days Estimated weight and percentile: 1077 g Anatomic survey: Neuro: Ventricles are non-dilated at less than 10 mm. Cisterna magna is normal at 3-11 mm. Cerebellum is normal in size and morphology. Nuchal skin fold: Not evaluated secondary to gestational age. Face: Nose and lips, facial profile are normal. Spine: No evidence for spina bifida. Heart: 4-chambered heart is present, with normal ventricular outflow tracts. Diaphragm: Diaphragm is intact. Stomach: Left-sided stomach is present. Kidneys: No hydronephrosis. Normal is less than 5 mm in 2nd trimester, less than 7 mm in 3rd trimester. Cord: 3-vessel cord has orthotopic insertion. Bladder: Normal in size. Extremities: All 4 extremities identified. IMPRESSION: 1. Intrauterine with gestational age of 27 weeks 4 days. 2. Suboptimal visualization of the RVOT, feet, cord insertion, placental cord insertion, diaphragm, and brain anatomy secondary to advanced gestational age. If clinically warranted consider reimaging in 2 weeks. We strive to produce accurate, complete, and clear reports of imaging services. To assist us in improving patient care, this report was composed using standard report templates and voice recognition software. Therefore, it may contain abnormal punctuation, insertions and/or omissions. Occasional wrong-word or sound-alike substitutions may occur. Though we review the report and make efforts to correct it, we do recommend that the report be read carefully in proper context to recognize any text inaccuracies. Dictated by: Davey Freeman M.D. on 12/20/2021 at 16:33 Approved by: Davey Freeman M.D. on 12/20/2021 at 16:52
== END ==
PROVIDERS: PCP Family Medicine; Referring Provider Family Medicine; Visit Provider Family Medicine
DX: Z34.80 Encounter for supervision of other normal pregnancy, unspecified trimester (principal); Z3A.27 27 weeks gestation of pregnancy
CPT/HCPCS: 76811

== ENCOUNTER → 2021-12-25 10:37 | Outpatient (CLI) | payer OTHER, MEDICAID, SELFPAY ==
[2021-12-25 14:42] LABS: Urine N gonorrhoeae NOT DETECTED
[2021-12-25 14:49] LABS: Urine Chlamydia NOT DETECTED
== END ==
PROVIDERS: PCP Family Medicine; Visit Provider Family Medicine
DX: Z11.3 Encounter for screening for infections with a predominantly sexual mode of transmission (principal)
CPT/HCPCS: 87086; 87491; 87591

== ENCOUNTER → 2022-02-17 16:06 | Outpatient (CLI) | payer OTHER, MEDICAID, SELFPAY ==
[2022-02-18 17:32] LABS: Strep Grp B PCR NEG for Grp B Strep
== END ==
PROVIDERS: PCP Family Medicine; Visit Provider Family Medicine
DX: Z36.85 Encounter for antenatal screening for Streptococcus B (principal)
CPT/HCPCS: 87653

== ENCOUNTER 2022-03-09 19:57 | Inpatient (IN) | payer OTHER, MEDICAID, SELFPAY ==
[2022-03-09 20:04] VITALS: BP 124/76
[2022-03-09] MEDS: miSOPROStoL 100 MCG TABLET 25 MCG VAG (21:00)
[2022-03-09 21:20] LABS: Add Manual Diff / Slide Review NO; Basophils Absolute Auto 0 /uL (0-100); Basophils Percent Auto 0.2 % (0-2); Eosinophils Absolute Auto 100 /uL (0-450); Eosinophils Percent Auto 0.9 % (2-4); Hemoglobin 10.9 g/dL (12.0-16.0); Lymphocytes Absolute Auto 1700 /uL (1100-4500); Lymphocytes Percent Auto 22.8 % (25-40); Mean Corpuscular HGB Conc 34.2 % (30-36); Mean Corpuscular Hemoglobin 28.1 PG (26-34); Mean Corpuscular Volume 82.1 fL (80-100); Monocytes Absolute Auto 700 /uL (0-900); Neutrophils Absolute Auto 4900 /uL (1500-7000); Neutrophils Percent Auto 67.1 % (50-75); Platelet Count 155 X10^3/uL (150-400); Red Blood Cell Count 3.89 X10^6/uL (4.0-5.2); White Blood Cell Count 7.3 X10^3/uL (4.5-11.0)
[2022-03-09 21:41] LABS: COVID19 -Nasal RAPID Negative (Negative)
[2022-03-09 21:41] LABS: Add Manual Diff / Slide Review NO; Basophils Absolute Auto 0 /uL (0-100); Basophils Percent Auto 0.2 % (0-2); Eosinophils Absolute Auto 100 /uL (0-450); Eosinophils Percent Auto 0.7 % (2-4); Hematocrit 32.2 % (36-46); Hemoglobin 10.9 g/dL (12.0-16.0); Lymphocytes Absolute Auto 1800 /uL (1100-4500); Lymphocytes Percent Auto 23.6 % (25-40); Mean Corpuscular HGB Conc 33.7 % (30-36); Mean Corpuscular Hemoglobin 27.8 PG (26-34); Mean Corpuscular Volume 82.4 fL (80-100); Monocytes Absolute Auto 700 /uL (0-900); Monocytes Percent Auto 8.9 % (3-14); Neutrophils Absolute Auto 5000 /uL (1500-7000); Neutrophils Percent Auto 66.6 % (50-75); Platelet Count 160 X10^3/uL (150-400); Red Blood Cell Count 3.91 X10^6/uL (4.0-5.2); Red Cell Distribution Width 14.7 % (11.6-14.8); White Blood Cell Count 7.5 X10^3/uL (4.5-11.0)
[2022-03-10] MEDS: miSOPROStoL 100 MCG TABLET 25 MCG VAG ×2 (01:00→04:58)
--- NOTE | 2022-03-10 08:21 | P.HPOB_ITS ---
OB HPI Date/Time Date of admission: 03/09/22 Date Patient Seen: 03/10/22 History of Present Condition Chief complaint: Induction JUAREZ Calculator Estimated Delivery Date Method Current WG Current Estimate 03/17/22 Manual 39w 0d Final JUAREZ - JOANN Other Estimates 04/03/22 Ultrasound #1 36w 4d 03/17/22 Ultrasound #2 39w 0d Estimated Gestational Age (weeks): 39w0d : 5 Para: 2 Narrative: Pt is a 36yo at 39w0d here for elective IOL. The pt denied any vaginal bleeding, LOF, or contractions prior to presentation. This morning she is feeling mild contractions. She is feeling her baby move regularly. Her was complicated by anxiety and depression, on Fluoxetine and Hydroxyzine. Also complicated by limited care, with pt not obtaining her glucola but random POC glucose in clinic in normal range. care: limited care, initiated at week # (28), number of visits (6) and pounds weight gain (24) Dating criteria OB: based on 2nd trimester US only Ultrasounds: normal mid trimester US Obstetrical complications: none Medical complications OB: psychiatric (anxiety and depression) Indications Indication for induction OB: other (elective) Preadmission Labs Last OB Lab Results: Blood Type A Positive 03/09/22 20:30 Antibody Screen Negative 03/09/22 20:30 Hematocrit 32.2 % (36-46) L 03/09/22 20:30 Hemoglobin 10.9 g/dL (12.0-16.0) L 03/09/22 20:30 Hepatitis B Surface Antigen Pending 03/09/22 20:30 Rubella Antibody Pending 03/09/22 20:30 Varicella-Zoster IgG Antibody Pending 03/09/22 20:30 Group B Streptococcus (PCR) Neg for grp b strep 02/17/22 16:06 -: Urine: negative External Labs -: Urine: negative Prior (ies) Past Pregnancies Del. Date GA/Weeks Labor Lgth Wt Sex Route Outcome Anesthesia Place Delv Breastfeed Preg Comp Name 10/17/09 14 elective 11/14/18 39 24 6 lb 1 oz Female vaginal live - full ter [facility] [place] 4 months other [place] 04/10/20 40 7 6 lb 8 oz Female vaginal live - full term I[facility] 3 months none [place] 05/17/21 6 spontaneous Delivery Date: 11/14/18 Last Updated by: Kathie Oliver R.N. placenta degrading Delivery Date: 04/10/20 Last Updated by: Kathie Oliver R.N. severe depression Evaluation Evaluation Baseline heart rate: 145 Variability: Moderate (11-25) monitor accelerations: Present Monitor Decelerations: Absent Contraction Frequency (minutes): 3 Uterine Contraction Intensity: Mild Status: Category l Dilation (cm): 3 Effacement (%): 70 Dilation: 3-4 cm Effacement: 60-70% station: -4 Position of cervix: anterior Consistency: soft Hernandez score: 8 PFSH Medical History (Updated 12/25/21 @ 11:12 by Vannesa Helm MD) ADHD Anxiety Depression Migraine Surgical History (Updated 09/05/21 @ 12:10 by Kathie Oliver RN) H/O tooth extraction Family History (Updated 09/05/21 @ 12:11 by Kathie Oliver RN) Grandmother Renal failure Pacemaker Social History marital status: unmarried,living together number of children: 4 (2 natural children and 2 stepchildren) household members: significant other and children lives independently: Yes housing: apartment (duplex ) pets and animals: No education level: college (some college, associate's degree) 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) current occupational exposures/hazards: No special john needs: No seatbelt use: always helmet use: Yes water heater temp set < 120 deg: Yes working smoke detector in home: Yes fire extinguisher in home: Yes carbon monox detector in home: Yes firearms in home: No do you feel safe at home: Yes Smoking Status: Former smoker second hand exposure: Yes (Neighbor smokes, sometimes leaks into home) alcohol intake: former substance use type: marijuana during the past year weight has: increased > 10 lbs (intentional) well-balanced diet: daily or most days daily servings fruits/ve-4 caffeine: Yes (Very little) Type(s) of exercise: walking additional social history: Pt has mostly stopped taking citalopram for anxiety/depression as she wasn't sure it was safe in , taking sporadically. States that symptoms have gotten much worse recently. Encouraged her to take this medication regularly and explained that it does not work unless taken consistently, if she feels that the medication needs to be changed then this can be discussed w/ a provider. Meds Home Medications and Allergies Home Medications Medication Instructions Recorded Confirmed Type prenat.vits,bradley,qwe-oirl-iboje 1 tab PO DAILY 04/10/20 03/09/22 History famotidine 20 mg tablet 20 mg PO DAILY #30 tabs 12/25/21 03/09/22 Rx hydroxyzine HCl 25 mg tablet 25 mg PO TID PRN anxiety #30 tabs 01/07/22 03/09/22 Rx fluoxetine 40 mg capsule 40 mg PO DAILY #30 caps 01/21/22 03/09/22 Rx amoxicillin 500 mg tablet 500 mg PO TID #15 tabs 02/28/22 03/09/22 Rx Allergies Allergy/AdvReac Type Severity Reaction Status Date / Time No Known Drug Allergies Allergy Verified 02/17/22 15:01 OB Exam Narrative Exam Narrative: Gen: NAD, sitting comfortably in bed, appears well CV: RRR, no murmurs Resp: clear to auscultation bilaterally Abd: soft, nontender, gravid Ext: no edema Objective Labs Result Diagrams: 03/09/22 20:30 Labs: Laboratory Results - last 24 hr 03/09/22 03/09/22 03/09/22 20:13 20:30 20:30 WBC 7.3 RBC 3.89 L Hgb 10.9 L Hct 32.0 L MCV 82.1 MCH 28.1 MCHC 34.2 RDW 15.0 H Plt Count 155 Neut % (Auto) 67.1 Lymph % (Auto) 22.8 L [place] % (Auto) 9.0 Eos % (Auto) 0.9 L Baso % (Auto) 0.2 Neut # (Auto) 4900 Lymph # (Auto) 1700 [place] # (Auto) 700 Eos # (Auto) 100 Baso # (Auto) 0 SARS-CoV-2 (PCR) Negative Blood Type A Positive Antibody Screen Negative 03/09/22 20:30 WBC 7.5 RBC 3.91 L Hgb 10.9 L Hct 32.2 L MCV 82.4 MCH 27.8 MCHC 33.7 RDW 14.7 Plt Count 160 Neut % (Auto) 66.6 Lymph % (Auto) 23.6 L [place] % (Auto) 8.9 Eos % (Auto) 0.7 L Baso % (Auto) 0.2 Neut # (Auto) 5000 Lymph # (Auto) 1800 [place] # (Auto) 700 Eos # (Auto) 100 Baso # (Auto) 0 SARS-CoV-2 (PCR) Blood Type Antibody Screen Assessment and Plan Assessment and Plan Assessment and Plan narrative: 36yo at 39w0d here for elective IOL. complicated by limited care with labs drawn at admission, anxiety and depression. GBS negative, Rh positive. Received cytotec overnight, now with mild contractions. Hernandez score 8. - Expectant management, anticipate - FHT reassuring - GBS negative, no prophylaxis indicated - Epidural for pain control when desired - Start pitocin, titrate as tolerated
[2022-03-10] MEDS: OXYTOCIN PREMIX 30 UNIT/500 ML PLAST..BAG IV (10:27)
[2022-03-10] MEDS: LACTATED RINGERS 1,000 ML 100 ML IV (10:27)
[2022-03-10] MEDS: FLUoxetine 20 MG CAPSULE 40 MG PO (10:33)
--- NOTE | 2022-03-10 13:21 | PM.OBPNLAB ---
Date/Time Date Patient Seen: 03/10/22 Time Patient Seen: 13:21 Pain Control Pain control: epidural Pelvic Exam Dilation (cm): 4 Effacement (%): 60 station: -2 Amniotic membrane status: Ruptured Comments: After informed consent, AROM performed with clear fluid present Contractions Contractions on admission: regular Monitor mode: External Pitocin rate (mU/min): 8 Contraction frequency (min): 3 Contraction pattern: Regular Status status: Category l Heart Rate Baseline: 140 Monitor Accelerations: Present Monitor Decelerations: Absent Monitor Variability: Moderate Assessment and Plan Comments: 36yo at 39w0d here for elective IOL.? complicated by limited care with labs drawn at admission, anxiety and depression.? GBS negative, Rh positive.? Received cytotec overnight, now on pitocin and making change. AROM performed with clear fluid present. - Expectant management, anticipate - FHT reassuring - Epidural in place for pain control - Continue pitocin, titrate as tolerated
--- NOTE | 2022-03-10 15:34 | PM.OBPNLAB ---
Date/Time Date Patient Seen: 03/10/22 Pain Control Pain control: epidural Pelvic Exam Dilation (cm): 4 Effacement (%): 60 station: -2 Amniotic membrane status: Ruptured Contractions Monitor mode: External Pitocin rate (mU/min): 8 Contraction frequency (min): 3 Contraction pattern: Regular Contraction intensity: Mild Intrauterine tone measurement: 160 Status status: Category l Heart Rate Baseline: 140 Monitor Accelerations: Present Monitor Decelerations: Absent Monitor Variability: Moderate Assessment and Plan Comments: 36yo at 39w0d here for elective IOL.? complicated by limited care with labs drawn at admission, anxiety and depression.? GBS negative, Rh positive.? Received cytotec overnight, now on pitocin.? AROM performed with clear fluid present. No significant cervical change in 2 hrs, and pts pitocin maximized based on contraction frequency. IUPC placed to help guide pitocin administration. - Expectant management, anticipate - FHT reassuring - Epidural in place for pain control - Continue pitocin, titrate to 200mVUs
--- NOTE | 2022-03-10 17:04 | PM.OBPRVD ---
Labor & Delivery Delivery date: 03/10/22 Intrapartal Events: None Cervical ripening method: per misoprostal protocol Induction method: per pitocin protocol Delivery augmentation: rupture of membranes Delivery monitor: external FHT and internal uterine Route of delivery: Episiotomy description: None L&D Laceration Description: None Quantitative Blood Loss: 200 Anesthesia Type: Epidural Complications: None Narrative: PROCEDURE: at 39w0d presented for elective IOL and was admitted to Labor and Delivery. She received cytotec for induction, followed by pitocin. AROM was performed with clear fluid present. IUPC was placed to help more appropriate titrate the pitocin. The patient progressed through the 1st stage over 6 hours. Pain was controlled with an epidural. The patient progressed through the 2nd stage over 10 minutes and delivered a viable male with APGARs 8/9 at 16:46 via without complications. The cord was cut and clamped after it stopped pulsating. The perineum and vagina were inspected with no lacerations. PREPROCEDURE DIAGNOSIS: Intrauterine at 39w0d GBS negative RH positive Limited care Anxiety/depression POSTPROCEDURE DIAGNOSIS: Intrauterine at 39w0d, delivered Same as preprocedure Baby 1: Infant gender: Male Presentation: vertex Position: Right Occiput Anterior Placenta delivery description: Spontaneous Cord Vessel Description: 3 Vessels score (1 min): 8 score (5 min): 9 weight: 6 lb 9.116 oz Plan for aftercare: Routine care
[2022-03-10 17:30] LABS: Hepatitis B Surface Antigen NEGATIVE s/c (NEGATIVE); Rubella Antibody IgG 19.7 IU/mL (>15)
[2022-03-10 17:39] LABS: HIV 1 & 2 Ab/Ag 4th Gen Combo NEGATIVE (NEGATIVE)
[2022-03-10] MEDS: ACETAMINOPHEN 325 MG TABLET 650 MG PO ×2 (18:02→23:52)
[2022-03-10] MEDS: IBUPROFEN 600 MG TABLET PO ×2 (18:02→23:53)
[2022-03-10] MEDS: DERMOPLAST SPRAY 20% 60 ML 1 SPRAY TOP (23:55)
[2022-03-10] MEDS: LANOLIN OINT 7 GM 1 APPLIC TOP (23:55)
[2022-03-11 03:36] LABS: RPR Screen Non Reactive (Non Reactive)
[2022-03-11 06:48] LABS: Add Manual Diff / Slide Review NO; Basophils Absolute Auto 100 /uL (0-100); Basophils Percent Auto 0.5 % (0-2); Eosinophils Absolute Auto 100 /uL (0-450); Eosinophils Percent Auto 0.6 % (2-4); Hematocrit 33.4 % (36-46); Hemoglobin 11.3 g/dL (12.0-16.0); Lymphocytes Absolute Auto 1700 /uL (1100-4500); Lymphocytes Percent Auto 16.6 % (25-40); Mean Corpuscular HGB Conc 33.9 % (30-36); Mean Corpuscular Volume 82.8 fL (80-100); Monocytes Absolute Auto 700 /uL (0-900); Monocytes Percent Auto 6.7 % (3-14); Neutrophils Absolute Auto 7900 /uL (1500-7000); Neutrophils Percent Auto 75.6 % (50-75); Platelet Count 179 X10^3/uL (150-400); Red Blood Cell Count 4.03 X10^6/uL (4.0-5.2); White Blood Cell Count 10.5 X10^3/uL (4.5-11.0)
[2022-03-11] MEDS: IBUPROFEN 600 MG TABLET PO ×2 (07:42→14:20)
[2022-03-11] MEDS: ACETAMINOPHEN 325 MG TABLET 650 MG PO ×2 (07:42→14:19)
--- NOTE | 2022-03-11 08:22 | PM.OBDS.1 ---
Discharge Providers Provider Date of admission: 03/09/22 19:57 Discharge Date: 03/11/22 Primary care physician: Bc Mcclain MD Consults: 03/11/22 17:03 Consult to Under Trimmer Routine Comment: Discharge provider: Vannesa Helm MD Summary Hospital Course Date Patient Seen: 03/11/22 Diagnoses: Intrauterine at 39w0d GBS negative RH positive Limited care Anxiety/depression Hospital Course: The pt presented for elective IOL. She receive cytotec followed by pitocin. AROM was performed with clear fluid present. She progressed to complete and had an uncomplicated of a viable baby boy. There were no lacerations. , there were no complications. At the time of discharge she was voiding, ambulating, and passing flatus. Her lochia was decreasing appropriately. Her pain was well controlled. She was voiding, ambulating, and passing flatus. She was with good latch. She will f/u in clinic in 6 weeks for check. Her plans on vasectomy for contraception, but the pt will likely want something to bridge. Peripartum Data Delivery Method: Natural Vaginal Laceration Description: None Episiotomy description: None Procedures: Spontaneous vaginal delivery complications: none [place] 1: Gender: Male Disposition of : home Discharge Diagnosis (1) Anxiety and depression: Status: Acute (2) Spontaneous vaginal delivery: Status: Acute Time Spent with Patient Time attestation: Total time spent providing and/or coordinating discharge services: Objective Labs Result Diagrams: 03/11/22 06:23 Labs: Laboratory Results - last 24 hr 03/09/22 03/09/22 03/11/22 20:30 20:30 06:23 WBC 10.5 RBC 4.03 Hgb 11.3 L Hct 33.4 L MCV 82.8 MCH 28.0 MCHC 33.9 RDW 15.0 H Plt Count 179 Neut % (Auto) 75.6 H Lymph % (Auto) 16.6 L [place] % (Auto) 6.7 Eos % (Auto) 0.6 L Baso % (Auto) 0.5 Neut # (Auto) 7900 H Lymph # (Auto) 1700 [place] # (Auto) 700 Eos # (Auto) 100 Baso # (Auto) 100 Serum VDRL Non reactive Hep Bs Antigen Negative HIV 1&2 Ab/P24 Ag 4thGn Negative Rubella Antibody 19.7 Exam Narrative Exam Narrative: Gen: NAD, sitting comfortably in bed, appears well CV: RRR, no murmurs Resp: clear to auscultation bilaterally Abd: soft, appropriately tender, fundus firm and below the umbilicus, nondistended Ext: no edema Discharge Plan Discharge Plan Patient Disposition: Home Discharge orders & Medications Prescriptions: New acetaminophen 325 mg Tablet 650 mg PO Q6HR PRN (Reason: Pain, Mild (1-3)) Qty: 30 0RF docusate sodium 100 mg Capsule 100 mg PO DAILY Qty: 30 0RF ibuprofen 600 mg Tablet 600 mg PO Q6HR PRN (Reason: Pain, Mild (1-3)) Qty: 30 0RF Continued famotidine 20 mg tablet 20 mg PO DAILY Qty: 30 3RF fluoxetine 40 mg capsule 40 mg PO DAILY Qty: 30 2RF hydroxyzine HCl 25 mg tablet 25 mg PO TID PRN (Reason: anxiety) Qty: 30 2RF amoxicillin 500 mg tablet 500 mg PO TID Qty: 15 0RF Rx Instructions: take med with food prenat.vits,bradley,[id number] Tablet 1 tab PO DAILY Follow up/Referrals: Vannesa Helm MD [Physician] - 6 Weeks Bc Mcclain MD [Primary Care Provider] - Diet/Activity/Treatments Diet: Diet as Tolerated and Regular Skin/Wound/Dressing Care Report to your healthcare provider any signs of infection, such as:: chills, fever, increased pain and unusual drainage Visit Report/Discharge Packet Instructions: DI for Labor and Delivery, Vaginal Visit Report Forms: Patient Portal/API, Stroke Signs & Symptoms Discharge Data Primary Care Provider: Bc Mcclain
[2022-03-11 09:48] LABS: Varicella IgG Antibody <135 index (Immune >165)
[2022-03-11 12:26] VITALS: BP 122/77; PULSE 71; RESP 16; TEMP 37
== END 2022-03-11 14:20 | disposition home or self-care (01) | DRG 560 ==
PROVIDERS: Admitting Provider Family Medicine; PCP Family Medicine; Referring Provider Family Medicine; Visit Provider Family Medicine
DX: O99.344 Other mental disorders complicating childbirth (principal); F41.9 Anxiety disorder, unspecified; F32.A Depression, unspecified; Z3A.39 39 weeks gestation of pregnancy; Z37.0 Single live birth; Z20.822 Contact with and (suspected) exposure to COVID-19; Z67.10 Type A blood, Rh positive
CPT/HCPCS: 36415; 59050; 59409; 80055; 85025; 86787; 86850; 86900; 86901; 87389; 87635; C9803; G0379; J2590